=== PATIENT | male | born 1945 | race Two or more races ===

== ENCOUNTER 2022-05-28 16:15 | Inpatient (IN) | payer OTHER ==
[~2022-05-28] VITALS: Ht 172.7 cm; Wt 68.0 kg
[~2022-05-28 16:15] MED LIST: AVODART0.5 MG PO; CIPRO500 MG PO; FLOMAX; KLONOPIN0.25 MG/TA PO; LYRICA50 MG PO; NEURONTIN600 MG PO; REBIF 44 M44 MCG/0.5 SQ; WELLBUTRIN XL300 MG PO
--- NOTE | 2022-05-28 16:30 | NUR ---
SE RECIBE MASCULINO DE 76 ANOS EN AMBULANCIA ALERTA Y ORIENTADO X3. REFIERE TOS, FIEBRE Y MALESTAR GENERAL DESDE EL HASEEB DE HOY. POSITIVO COVID 19 EN PRUEBA CASERA EN EL HOGAR. S/V ESTABLES AL MOMENTO SPO2 96% ROOM AIR. SE UBICA EN ABRIL CON BARANDAS ELEVADAS PENDIENTE A EVALUACION MEDICA.
--- NOTE | 2022-05-28 16:41 | NUR ---
PTE EVALUADO POR DR BAZAN QUIEN [place]. MS Papi BLANCA RN REALIZA TRISTON DE MUESTRAS Y ADMINISTRACION DE MEDICAMENTOS BAJO TECNICA ASEPTICA. SE ORIENTA A PTE SOBRE EL MISMO Y REFIERE COMPRENDER. SE NOTIFICA A PERSONAL DE TERAPIA RESPIRATORIA EN TUR[place]. PTE PERMANECE EN CAMA CON BARANDAS ELEVADAS. PENDIETE CT Y RESULTADOS DE MUESTRAS DE LABORATORIO.
--- NOTE | 2022-05-28 19:41 | NUR ---
SE INSERTA RANDHAWA BAJO MEDIDAS ASEPTICAS,ORINA AMARILLO NBA,SE TRISTON MUESTRA DE UA Y UC PENDIENTE.
== END 2022-06-01 22:22 | disposition home or self-care (01) | DRG 177 ==
LOC: ER 16:15 → SEC-K 21:36 → MEDJ 05-29 13:54
PROVIDERS: ADMIT Internal Medicine; ATTEND Internal Medicine
PROC: 8E0ZXY6 Isolation (ICD-10-PCS; 2022-05-28)
PROC: 5A0945A Assistance with Respiratory Ventilation, 24-96 Consecutive Hours, High Flow/Velocity Cannula (ICD-10-PCS; 2022-05-28)
PROC: BW24ZZZ Computerized Tomography (CT Scan) of Chest and Abdomen (ICD-10-PCS; 2022-05-28)
PROC: 4A12X4Z Monitoring of Cardiac Electrical Activity, External Approach (ICD-10-PCS; 2022-05-28)
PROC: XW033E5 Introduction of Remdesivir Anti-infective into Peripheral Vein, Percutaneous Approach, New Technology Group 5 (ICD-10-PCS; principal; 2022-05-29)
DX: U07.1 COVID-19 (principal); J12.82 Pneumonia due to coronavirus disease 2019; N17.9 Acute kidney failure, unspecified; N39.0 Urinary tract infection, site not specified; J44.9 Chronic obstructive pulmonary disease, unspecified; G35 Multiple sclerosis; I11.9 Hypertensive heart disease without heart failure; I25.10 Atherosclerotic heart disease of native coronary artery without angina pectoris; Z86.73 Personal history of transient ischemic attack (TIA), and cerebral infarction without residual deficits

== ENCOUNTER 2022-07-20 10:45 | Outpatient (CLI) | payer OTHER | END 2022-07-20 10:49 | disposition home or self-care (01) | LOC: MRI 10:45 | PROVIDERS: ATTEND Psychiatry & Neurology Clinical Neurophysiology | DX: G35 Multiple sclerosis (principal) | CPT/HCPCS: 70551 ==

== ENCOUNTER 2022-07-24 12:39 | Outpatient (CLI) | payer OTHER | END 2022-07-24 12:40 | disposition home or self-care (01) | LOC: LAB 12:39 | PROVIDERS: ATTEND Internal Medicine | DX: G46.3 Brain stem stroke syndrome (principal); I10 Essential (primary) hypertension; G25.81 Restless legs syndrome; G35 Multiple sclerosis; N48.9 Disorder of penis, unspecified; N39.0 Urinary tract infection, site not specified; E55.9 Vitamin D deficiency, unspecified; R73.9 Hyperglycemia, unspecified; E03.9 Hypothyroidism, unspecified ==

== ENCOUNTER → 2022-08-27 12:39 | Outpatient (CLI) | payer OTHER | END | disposition home or self-care (01) | LOC: LAB 12:39 | PROVIDERS: ATTEND Internal Medicine | DX: N48.9 Disorder of penis, unspecified (principal); G35 Multiple sclerosis; G25.81 Restless legs syndrome; G46.3 Brain stem stroke syndrome ==

== ENCOUNTER 2022-10-06 22:30 | Emergency (ER) | payer OTHER ==
[~2022-10-06] VITALS: Ht 180.3 cm; Wt 72.6 kg
[~2022-10-06 22:30] MED LIST changes: +ATORVASTATIN CA40 MG; +CLONAZEPAM1 MG; +GABAPENTIN600 MG; +NORVASC2.5 MG; +SERTRALINE HCL100 MG
[2022-10-07] MEDS ORDERED: CEFDINIR300 MG PO (08:03)
== END 2022-10-07 14:48 ==
LOC: ER 22:30
DX: R31.9 Hematuria, unspecified (principal); G35 Multiple sclerosis; Z91.041 Radiographic dye allergy status; Z74.01 Bed confinement status; Z91.018 Allergy to other foods

== ENCOUNTER 2022-10-22 08:19 | Outpatient (CLI) | payer OTHER ==
[~2022-10-22 08:19] MED LIST changes: +CEFDINIR300 MG PO
== END 2022-10-22 08:21 | disposition home or self-care (01) ==
LOC: NUCLEAR 08:19
PROVIDERS: ATTEND Psychiatry & Neurology Clinical Neurophysiology
DX: I63.9 Cerebral infarction, unspecified (principal)